=== PATIENT | female | born 1935 | race Caucasian/White ===

== ENCOUNTER 2022-02-06 16:33 | Emergency (ER) | payer MEDICARE, SELFPAY ==
[2022-02-07] MEDS ORDERED: EPINEPHrine 1 MG/10 ML Abboject SYRINGE ONE (16:32)
== END 2022-02-06 16:44 | disposition expired ==
LOC: EDBD 16:33 → ERS 16:33
DX: I46.9 Cardiac arrest, cause unspecified (principal)
CPT/HCPCS: 99285